=== PATIENT | male | born 1965 | race African-American/Black ===

== ENCOUNTER 2016-05-26 11:57 | Inpatient (IN) | payer OTHER ==
[2016-05-26 12:34] VITALS: BMI 31.2
--- NOTE | 2016-05-26 13:55 | HP ---
Admission ROS [facility] Chief Complaint: I NEED HELP TO GO TO REHAB FROM COCAINE Allergies/Adverse Reactions: Allergies Allergy/AdvReac Type Severity Reaction Status Date / Time No Known Allergies Allergy Verified 05/26/16 12:44 History of Present Illness: THIS 51 YEARS OLD MALE WITH COCAINE DEPENDENCE,LAST REHAB 02/12/16 TO 03/03/16 BIPOLAR DISORDER LONGEST SOBRIETY 5 YEARS Exam Limitations: No Limitations - Ebola screening Have you traveled outside of the country in the last 21 days: No Have you been sick,other than usual withdrawal symptoms: No - Review of Systems Constitutional: No Symptoms Reported EENT: reports: No Symptoms Reported Respiratory: reports: No Symptoms reported Cardiac: reports: No Symptoms Reported GI: reports: No Symptoms Reported : reports: No Symptoms Reported Musculoskeletal: reports: No Symptoms Reported Integumentary: reports: No Symptoms Reported Neuro: reports: No Symptoms reported Endocrine: reports: No Symptoms Reported Hematology: reports: No Symptoms Reported Psychiatric: reports: other ( BIPOLAR DISORDER) Patient History - Patient Medical History Hx Anemia: No Hx Asthma: No Hx Chronic Obstructive Pulmonary Disease (COPD): No Hx Cancer: Yes (prostate ca 2012, radiation x 9wks, 52 pellets ) Hx Cardiac Disorders: No Hx Congestive Heart Failure: No Hx Hypertension: No Hx Hypercholesterolemia: No Hx Pacemaker: No HX Cerebrovascular Accident: No Hx Seizures: No (h/o blackout -last in 2011) Hx Diabetes: No Hx Gastrointestinal Disorders: No Hx Liver Disease: No Hx Genitourinary Disorders: No Hx Sexually Transmitted Disorders: No Hx Renal Disease (ESRD): No Hx Thyroid Disease: No Hx Human Immunodeficiency Virus (HIV): No Hx Hepatitis C: No Hx Depression: Yes (NO MED) Hx Suicide Attempt: No Hx Bipolar Disorder: Yes (NO MED) Hx Schizophrenia: No Other Medical History: NO SUICIDAL,NO HOMICIDAL - Patient Surgical History Hx Abdominal Surgery: Yes (rt inguinal hernia repair) - PPD History Previous Implant?: Yes Documented Results: Negative w/proof Date: 02/14/16 Results: 0 MM PPD to be Administered?: No - Smoking Cessation Smoking history: Current every day smoker Have you smoked in the past 12 months: Yes Aproximately how many cigarettes per day: 10 If you are a former smoker, when did you quit?: 0 Cigars Per Day: 0 Hx Chewing Tobacco Use: No Initiated information on smoking cessation: Yes 'Breaking Loose' booklet given: 05/26/16 - Substance & Tx. History Hx Alcohol Use: No Hx Substance Use: Yes Substance Use Type: Cocaine Hx Substance Use Treatment: Yes (02/12/16 TO 03/03/16) - Substances Abused Cocaine Route: Inhalation Frequency: 3-6 times per week Amount used: 100$ Age of first use: 24 Date of Last Use: 05/23/16 Family Disease History - Family Disease History Family History: Denies Admission Physical Exam [facility] - Vital Signs Vital Signs: Vital Signs - 24 hr 05/26/16 12:31 Temperature 96.6 F L Pulse Rate 76 Respiratory 20 Rate Blood Pressure 117/80 - Physical General Appearance: Yes: Within Normal Limits HEENTM: Yes: Within Normal Limits Respiratory: Yes: Within Normal Limits Neck: Yes: Within Normal Limits Breast: Yes: Within Normal Limits Cardiology: Yes: Within Normal Limits Abdominal: Yes: Within Normal Limits, Normal Bowel Sounds, Non Tender, Flat, Soft, Surgical Scar Genitourinary: Yes: Within Normal Limits Back: Yes: Within Normal Limits Musculoskeletal: Yes: Within Normal Limits Extremities: Yes: Within Normal Limits Neurological: Yes: Within Normal Limits, 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
[2016-05-26] MEDS ORDERED: LOPERAMIDE HCL 2 MG CAPSULE PO PRN (14:03)
[2016-05-26] MEDS ORDERED: guaiFENesin/D-METHORPHAN HB 10 ML UNIT-DOSE CUPS PO PRN (14:03)
[2016-05-26] MEDS ORDERED: MAGNESIUM HYDROX 2400MG/30ML ORAL SUSPENSION 30 ML CUP PO PRN (14:03)
[2016-05-26] MEDS ORDERED: diphenhydrAMINE HCL 50 MG CAPSULE PO PRN (14:03)
[2016-05-26] MEDS ORDERED: ACETAMINOPHEN 325 MG TABLET (FP) PO PRN (14:03)
[2016-05-26] MEDS ORDERED: MAG HYDROX/AL HYDROX/SIMETH 30 ML UNIT-DOSE CUP PO PRN (14:03)
[2016-05-26] MEDS ORDERED: MAGNESIUM CITRATE 300 ML BOTTLE PO PRN (14:03)
[2016-05-26] MEDS ORDERED: hydrOXYzine PAMOATE 50 MG CAPSULE (FP) PO PRN (14:03)
[2016-05-26] MEDS ORDERED: MENTHOL/PHENOL 1 EACH UD MM PRN (14:03)
[2016-05-26] MEDS ORDERED: P-EPHED 60MG/TRIPROLIDI 2.5MG TABLET PO PRN (14:03)
[2016-05-26] MEDS: NICOTINE 21 MG/24 HOURS TOPICAL PATCH TD SCH (20:01)
[2016-05-26 20:06] LABS: MCH 29.3 pg (25.7-33.7); MCHC 31.8 g/dl (32.0-35.9); MEAN CELL VOLUME 92.1 fl (80-96); MEAN PLT VOLUME 9.4 fl (7.5-11.1); PLATELET COUNT 340 K/MM3 (134-434); WHITE BLOOD COUNT 7.5 K/mm3 (4.0-10.0)
[2016-05-26 20:21] LABS: URINE APPEARANCE CLEAR; URINE BILIRUBIN NEGATIVE (NEGATIVE); URINE BLOOD NEGATIVE (NEGATIVE); URINE COLOR LTYELLOW; URINE GLUCOSE (UA) NEGATIVE (NEGATIVE); URINE KETONE NEGATIVE (NEGATIVE); URINE LEUK ESTERASE NEGATIVE (NEGATIVE); URINE NITRITE NEGATIVE (NEGATIVE); URINE PROTEIN NEGATIVE (NEGATIVE); URINE UROBILINOGEN NEGATIVE E.U./dl (0.2-1.0)
[2016-05-26 20:29] LABS: ALBUMIN 4.1 g/dl (3.4-5.0); CALCIUM 9.1 mg/dL (8.5-10.1)
[2016-05-26 20:33] LABS: BILIRUBIN,TOTAL 0.5 mg/dL (0.2-1.0); CREATININE 1.5 mg/dL (0.7-1.3); TOT PROT 7.5 g/dl (6.4-8.2)
[2016-05-26] MEDS: BACITRACIN 0.9 GM PACKET TP SCH (22:00)
[2016-05-26] MEDS: THIAMINE HCL 100 MG TABLET (FP) PO SCH (22:00)
[2016-05-26] MEDS: QUEtiapine FUMARATE 100 MG TABLET (FP) PO SCH (22:00)
--- NOTE | 2016-05-27 09:23 | HP ---
Psychiatrist Admission - Data Date of interview: 05/27/16 Admission source: Self-referred Identifying data: This the second [facility] admission for this 51 years single Black male, father of 6, unemployed on public assistance, homeless Medical History: Significant for history of S/P surgery for Prostate cancer and S/P right Inguinal Hernia repair. 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 He was depressed because he lost his mother to cancer. He was started on Abilify 15 mg daily. He took this medication for 9 months while he was in the program. Upon discharge, he was referred to [facility] for outpatient treatment. There, he saw a psychiatrist who in addition to Abilify precribed him Seroquel 100 mg po HS. He completed [facility] in December 2015.Reports that his only psychiatric admission was to [facility] on 02/09/16 because he was feeling depressed and suicidal while under the influence of cocaine and alcohol. He was kept on the psychiatric grant for 3 days without being given psychotropic medication. After discharged, he was referred to [facility] for his first rehab admision to this facility. During that admission he did not want to be on any psychotropic medication. Upon discharge from rehab in March 03, 2016, he claims that he was referred back to [facility] when the staff psychiatrist put him back on Abilify 15 mg po daily and Seroquel 100 mg po HS. He requests that he be continued on these medication during his current stay in this facility. Denies history of suicidal attempt Physical/Sexual Abuse/Trauma History: Denies history of physical, sexual abuse as well as DV relationship Additional Comment: History of multiple previous arrests including 2 felony convictions. Denies being on parole/ probation Vital Signs: Vital Signs - 24 hr 05/26/16 05/27/16 05/27/16 12:31 00:30 03:30 Temperature 96.6 F L Pulse Rate 76 Respiratory 20 18 18 Rate Blood Pressure 117/80 05/27/16 06:42 Temperature 98.6 F Pulse Rate 74 Respiratory 18 Rate Blood Pressure 104/74 Allergies/Adverse Reactions: Allergies Allergy/AdvReac Type Severity Reaction Status Date / Time No Known Allergies Allergy Verified 12/21/16 12:44 Date of last physical exam: 05/26/16 Concur with the findings of this exam: Yes - Substance Abuse/Tx History Hx Alcohol Use: No Hx Substance Use: Yes Substance Use Type: Cocaine (Started using cocaine at age 24, consumes $100 worth daily. Last used on 05/23/16) Hx Substance Use Treatment: Yes (one previous recent inpt rehab @ [facility] from -03/03/16) - Admission Criteria Poor recovery environment: Yes Comorbidities: Yes Lacks judgement: Yes Mental Status Exam - Mental Status Exam Alert and Oriented to: Time, Place, Person Cognitive Function: Fair Patient Appearance: Well Groomed Mood: Hopeful, Euthymic Affect: Appropriate Patient Behavior: Fatigued, Cooperative Speech Pattern: Clear Voice Loudness: Normal Thought Process: Intact Thought Disorder: Not Present Hallucinations: Denies Suicidal Ideation: Denies Homicidal Ideation: Denies Insight/Judgement: Fair Sleep: Poorly Appetite: Good Muscle strength/Tone: Normal Gait/Station: Normal Psychiatric Findings - Problem List ([place] 1, 2,3) (1) Cocaine dependence Current Visit: No Status: Acute (2) Nicotine dependence Current Visit: No Status: Acute (3) Mood disorder Current Visit: No Status: Acute (4) Bipolar disorder Current Visit: Yes Status: Ruled-out (5) H/O prostate cancer Current Visit: No Status: Acute - Initial Treatment Plan Initial Treatment Plan: 1) Continue Abilify 15 mg po daily and Seroquel 100 mg po HS. 2) Monitor progress
[2016-05-27] MEDS: NICOTINE 21 MG/24 HOURS TOPICAL PATCH TD SCH (10:02)
[2016-05-27] MEDS: ARIPiprazole 15 MG TABLET PO SCH (10:02)
[2016-05-27] MEDS: BACITRACIN 0.9 GM PACKET TP SCH ×2 (10:02→21:16)
[2016-05-27] MEDS: PRENATAL VITAMINS W/ FOLIC ACID TABLET (FP) PO SCH (10:02)
[2016-05-27] MEDS: QUEtiapine FUMARATE 100 MG TABLET (FP) PO SCH (21:16)
[2016-05-27] MEDS: THIAMINE HCL 100 MG TABLET (FP) PO SCH (21:16)
[2016-05-27] MEDS: MICONAZOLE NITRATE 14 GM/TUBE TUBE TP SCH (22:08)
[2016-05-28] MEDS: ARIPiprazole 15 MG TABLET PO SCH (09:54)
[2016-05-28] MEDS: PRENATAL VITAMINS W/ FOLIC ACID TABLET (FP) PO SCH (09:54)
[2016-05-28] MEDS: BACITRACIN 0.9 GM PACKET TP SCH ×2 (09:54→21:36)
[2016-05-28] MEDS: MICONAZOLE NITRATE 14 GM/TUBE TUBE TP SCH ×2 (09:54→21:36)
[2016-05-28] MEDS: NICOTINE 21 MG/24 HOURS TOPICAL PATCH TD SCH (09:55)
[2016-05-28] MEDS: QUEtiapine FUMARATE 100 MG TABLET (FP) PO SCH (21:37)
[2016-05-28] MEDS: THIAMINE HCL 100 MG TABLET (FP) PO SCH (21:37)
[2016-05-29] MEDS: BACITRACIN 0.9 GM PACKET TP SCH ×2 (10:37→21:34)
[2016-05-29] MEDS: ARIPiprazole 15 MG TABLET PO SCH (10:37)
[2016-05-29] MEDS: PRENATAL VITAMINS W/ FOLIC ACID TABLET (FP) PO SCH (10:39)
[2016-05-29] MEDS: NICOTINE 21 MG/24 HOURS TOPICAL PATCH TD SCH (10:39)
[2016-05-29] MEDS: MICONAZOLE NITRATE 14 GM/TUBE TUBE TP SCH ×2 (10:39→21:35)
[2016-05-29] MEDS: THIAMINE HCL 100 MG TABLET (FP) PO SCH (21:35)
[2016-05-29] MEDS: QUEtiapine FUMARATE 100 MG TABLET (FP) PO SCH (21:35)
[2016-05-30] MEDS: ARIPiprazole 15 MG TABLET PO SCH (10:06)
[2016-05-30] MEDS: BACITRACIN 0.9 GM PACKET TP SCH ×2 (10:06→22:07)
[2016-05-30] MEDS: PRENATAL VITAMINS W/ FOLIC ACID TABLET (FP) PO SCH (10:06)
[2016-05-30] MEDS: MICONAZOLE NITRATE 14 GM/TUBE TUBE TP SCH ×2 (10:08→22:07)
[2016-05-30] MEDS: NICOTINE 21 MG/24 HOURS TOPICAL PATCH TD SCH (10:08)
[2016-05-30] MEDS: QUEtiapine FUMARATE 100 MG TABLET (FP) PO SCH (22:09)
[2016-05-30] MEDS: THIAMINE HCL 100 MG TABLET (FP) PO SCH (22:10)
[2016-05-31] MEDS: PRENATAL VITAMINS W/ FOLIC ACID TABLET (FP) PO SCH (10:09)
[2016-05-31] MEDS: ARIPiprazole 15 MG TABLET PO SCH (10:09)
[2016-05-31] MEDS: BACITRACIN 0.9 GM PACKET TP SCH ×2 (10:10→21:53)
[2016-05-31] MEDS: MICONAZOLE NITRATE 14 GM/TUBE TUBE TP SCH ×2 (10:10→21:54)
[2016-05-31] MEDS: NICOTINE 21 MG/24 HOURS TOPICAL PATCH TD SCH (10:10)
[2016-05-31] MEDS: THIAMINE HCL 100 MG TABLET (FP) PO SCH (21:53)
[2016-05-31] MEDS: QUEtiapine FUMARATE 100 MG TABLET (FP) PO SCH (21:53)
[2016-06-01] MEDS: MICONAZOLE NITRATE 14 GM/TUBE TUBE TP SCH ×2 (10:15→21:12)
[2016-06-01] MEDS: NICOTINE 21 MG/24 HOURS TOPICAL PATCH TD SCH (10:15)
[2016-06-01] MEDS: PRENATAL VITAMINS W/ FOLIC ACID TABLET (FP) PO SCH (10:15)
[2016-06-01] MEDS: ARIPiprazole 15 MG TABLET PO SCH (10:15)
[2016-06-01] MEDS: BACITRACIN 0.9 GM PACKET TP SCH ×2 (10:15→21:12)
[2016-06-01] MEDS: THIAMINE HCL 100 MG TABLET (FP) PO SCH (21:12)
[2016-06-01] MEDS: QUEtiapine FUMARATE 100 MG TABLET (FP) PO SCH (21:12)
[2016-06-02] MEDS: ARIPiprazole 15 MG TABLET PO SCH (09:50)
[2016-06-02] MEDS: PRENATAL VITAMINS W/ FOLIC ACID TABLET (FP) PO SCH (09:50)
[2016-06-02] MEDS: MICONAZOLE NITRATE 14 GM/TUBE TUBE TP SCH ×2 (09:50→21:22)
[2016-06-02] MEDS: BACITRACIN 0.9 GM PACKET TP SCH ×2 (09:51→21:22)
[2016-06-02] MEDS: NICOTINE 21 MG/24 HOURS TOPICAL PATCH TD SCH (10:18)
[2016-06-02] MEDS: COLLOIDAL OATMEAL 1 BAR EACH TP PRN (17:42)
[2016-06-02] MEDS: THIAMINE HCL 100 MG TABLET (FP) PO SCH (21:22)
[2016-06-02] MEDS: QUEtiapine FUMARATE 100 MG TABLET (FP) PO SCH (21:22)
[2016-06-03] MEDS: MICONAZOLE NITRATE 14 GM/TUBE TUBE TP SCH ×2 (09:51→21:44)
[2016-06-03] MEDS: PRENATAL VITAMINS W/ FOLIC ACID TABLET (FP) PO SCH (09:51)
[2016-06-03] MEDS: ARIPiprazole 15 MG TABLET PO SCH (09:51)
[2016-06-03] MEDS: NICOTINE 21 MG/24 HOURS TOPICAL PATCH TD SCH (09:51)
[2016-06-03] MEDS: BACITRACIN 0.9 GM PACKET TP SCH ×2 (09:51→21:21)
[2016-06-03] MEDS: THIAMINE HCL 100 MG TABLET (FP) PO SCH (21:21)
[2016-06-03] MEDS: QUEtiapine FUMARATE 100 MG TABLET (FP) PO SCH (21:21)
[2016-06-04] MEDS: ARIPiprazole 15 MG TABLET PO SCH (09:57)
[2016-06-04] MEDS: PRENATAL VITAMINS W/ FOLIC ACID TABLET (FP) PO SCH (09:57)
[2016-06-04] MEDS: BACITRACIN 0.9 GM PACKET TP SCH ×2 (09:57→21:10)
[2016-06-04] MEDS: NICOTINE 21 MG/24 HOURS TOPICAL PATCH TD SCH (09:58)
[2016-06-04] MEDS: MICONAZOLE NITRATE 14 GM/TUBE TUBE TP SCH ×2 (09:58→21:11)
[2016-06-04] MEDS: QUEtiapine FUMARATE 100 MG TABLET (FP) PO SCH (21:10)
[2016-06-04] MEDS: THIAMINE HCL 100 MG TABLET (FP) PO SCH (21:10)
[2016-06-05] MEDS: NICOTINE 21 MG/24 HOURS TOPICAL PATCH TD SCH (09:58)
[2016-06-05] MEDS: ARIPiprazole 15 MG TABLET PO SCH (09:59)
[2016-06-05] MEDS: PRENATAL VITAMINS W/ FOLIC ACID TABLET (FP) PO SCH (09:59)
[2016-06-05] MEDS: BACITRACIN 0.9 GM PACKET TP SCH ×2 (09:59→21:15)
[2016-06-05] MEDS: MICONAZOLE NITRATE 14 GM/TUBE TUBE TP SCH ×2 (09:59→21:16)
[2016-06-05] MEDS: THIAMINE HCL 100 MG TABLET (FP) PO SCH (21:15)
[2016-06-05] MEDS: QUEtiapine FUMARATE 100 MG TABLET (FP) PO SCH (21:16)
[2016-06-06] MEDS: MICONAZOLE NITRATE 14 GM/TUBE TUBE TP SCH ×2 (10:02→21:20)
[2016-06-06] MEDS: PRENATAL VITAMINS W/ FOLIC ACID TABLET (FP) PO SCH (10:02)
[2016-06-06] MEDS: BACITRACIN 0.9 GM PACKET TP SCH ×2 (10:02→21:20)
[2016-06-06] MEDS: NICOTINE 21 MG/24 HOURS TOPICAL PATCH TD SCH (10:02)
[2016-06-06] MEDS: ARIPiprazole 15 MG TABLET PO SCH (10:02)
[2016-06-06] MEDS: IBUPROFEN 400 MG TABLET (FP) PO PRN (11:10)
[2016-06-06] MEDS: THIAMINE HCL 100 MG TABLET (FP) PO SCH (21:20)
[2016-06-06] MEDS: QUEtiapine FUMARATE 100 MG TABLET (FP) PO SCH (21:20)
[2016-06-07] MEDS: MICONAZOLE NITRATE 14 GM/TUBE TUBE TP SCH ×2 (09:52→21:13)
[2016-06-07] MEDS: ARIPiprazole 15 MG TABLET PO SCH (09:52)
[2016-06-07] MEDS: BACITRACIN 0.9 GM PACKET TP SCH ×2 (09:52→21:13)
[2016-06-07] MEDS: PRENATAL VITAMINS W/ FOLIC ACID TABLET (FP) PO SCH (09:53)
[2016-06-07] MEDS: NICOTINE 21 MG/24 HOURS TOPICAL PATCH TD SCH (09:53)
[2016-06-07] MEDS: THIAMINE HCL 100 MG TABLET (FP) PO SCH (21:13)
[2016-06-07] MEDS: QUEtiapine FUMARATE 100 MG TABLET (FP) PO SCH (21:13)
[2016-06-08] MEDS: NICOTINE 21 MG/24 HOURS TOPICAL PATCH TD SCH (09:47)
[2016-06-08] MEDS: PRENATAL VITAMINS W/ FOLIC ACID TABLET (FP) PO SCH (09:47)
[2016-06-08] MEDS: MICONAZOLE NITRATE 14 GM/TUBE TUBE TP SCH ×2 (09:47→21:03)
[2016-06-08] MEDS: BACITRACIN 0.9 GM PACKET TP SCH ×2 (09:47→21:03)
[2016-06-08] MEDS: ARIPiprazole 15 MG TABLET PO SCH (09:47)
[2016-06-08] MEDS: COLLOIDAL OATMEAL 1 BAR EACH TP PRN (17:57)
[2016-06-08] MEDS: QUEtiapine FUMARATE 100 MG TABLET (FP) PO SCH (21:03)
[2016-06-08] MEDS: THIAMINE HCL 100 MG TABLET (FP) PO SCH (21:03)
[2016-06-09] MEDS: IBUPROFEN 400 MG TABLET (FP) PO PRN (06:31)
[2016-06-09] MEDS: MICONAZOLE NITRATE 14 GM/TUBE TUBE TP SCH ×2 (09:40→21:03)
[2016-06-09] MEDS: BACITRACIN 0.9 GM PACKET TP SCH ×2 (09:40→21:03)
[2016-06-09] MEDS: PRENATAL VITAMINS W/ FOLIC ACID TABLET (FP) PO SCH (09:40)
[2016-06-09] MEDS: ARIPiprazole 15 MG TABLET PO SCH (09:40)
[2016-06-09] MEDS: NICOTINE 21 MG/24 HOURS TOPICAL PATCH TD SCH (09:41)
[2016-06-09] MEDS: QUEtiapine FUMARATE 100 MG TABLET (FP) PO SCH (21:03)
[2016-06-09] MEDS: THIAMINE HCL 100 MG TABLET (FP) PO SCH (21:03)
[2016-06-10] MEDS: IBUPROFEN 400 MG TABLET (FP) PO PRN (06:32)
[2016-06-10 07:14] VITALS: BP 120/79; PULSE 82; TEMP 97.4
--- NOTE | 2016-06-10 09:15 | PN ---
Psychiatric Progress Note Vital Signs: Vital Signs Period Temp Pulse Resp BP Sys/Montes Pulse Ox Last 24 Hr 97.4 F 82 16-18 120/79 Date of Session: 06/10/16 Chief Complaint:: Psychiatrist Discharge Note HPI: Patient addressing Cocaine Dependence comorbid with Nicotine Dependence and Mood Disorder ROS: Prostate cancer Current Medications: Active Medications Generic Name Dose Route Start Last Admin Trade Name Freq PRN Reason Stop Dose Admin Acetaminophen 650 mg 05/26/16 14:03 Tylenol - PO Q4H PRN PAIN Al Hydroxide/Mg Hydroxide 30 ml 05/26/16 14:03 Mylanta Oral Suspension - PO Q6H PRN DYSPEPSIA Aripiprazole 15 mg 05/27/16 10:00 06/09/16 09:40 Abilify PO 15 mg DAILY PORTER Administration Bacitracin 0.9 gm 05/26/16 22:00 06/09/16 21:03 Bacitracin - TP 0.9 gm BID PORTER Administration Colloidal Oatmeal 1 applic 06/02/16 14:47 06/08/16 17:57 Aveeno Soap - TP 1 applic DAILY PRN Administration HYGEINE Diphenhydramine HCl 50 mg 05/26/16 14:03 Benadryl - PO HSMR1 PRN INSOMNIA Eucalyptus/Menthol/Phenol/Sorbitol 1 each 05/26/16 14:03 Cepastat Lozenge - MM Q4H PRN SORE THROAT Guaifenesin 10 ml 05/26/16 14:03 Robitussin Dm - PO Q6H PRN COUGH Hydroxyzine Pamoate 50 mg 05/26/16 14:03 Vistaril - PO Q4H PRN AGITATION Ibuprofen 400 mg 05/26/16 14:03 06/10/16 06:32 Motrin - PO 400 mg Q6H PRN Administration SEVERE PAIN Loperamide HCl 4 mg 05/26/16 14:03 Imodium - PO Q6H PRN DIARRHEA Magnesium Citrate 300 ml 05/26/16 14:03 Citroma - PO Q48H PRN CONSTIPATION Magnesium Hydroxide 30 ml 05/26/16 14:03 Milk Of Magnesia - PO DAILY PRN CONSTIPATION Miconazole Nitrate 1 applic 05/27/16 22:00 06/09/16 21:03 Monistat Topical Cream - TP Not Given BID PORTER Nicotine 21 mg 05/26/16 14:15 06/09/16 09:41 Nicoderm Patch - TD Not Given DAILY PORTER Multivit/Folic Acid/Iron 1 tab 05/27/16 10:00 06/09/16 09:40 Vitamins (Sjr) - PO 1 tab DAILY PORTER Administration Pseudoephedrine/Triprolidine 1 combo 05/26/16 14:03 Actifed - PO TID PRN NASAL CONGESTION Quetiapine Fumarate 100 mg 05/26/16 22:00 06/09/16 21:03 Seroquel - PO 100 mg HS PORTER Administration Thiamine HCl 100 mg 05/26/16 22:00 06/09/16 21:03 Vitamin B1 - PO 100 mg HS PORTER Administration Current Side Effect: No Lab tests ordered: No Lab tests reviewed: Yes Provider note:: Patient has completed this program today. He has met his treatment goals and will continue to address his issues in outpatient treatment at [facility]. He verbalized understanding of the negative consequences of his addiction and from his participation in this program, he has learned to recognize that he is in a toxic relationship and he has to change his attitute and behavior. He responded well to Abilify 15 mg po daily and Seroquel 100 mg po HS. Scripts for these medications are electronically transferred to [facility] at [address] [place] [address]. He is stable for discharge today Total face to face time:: 35 Mental Status Exam - Mental Status Exam Alert and Oriented to: Time, Place, Person Cognitive Function: Fair Patient Appearance: Well Groomed Mood: Hopeful, Euthymic Affect: Appropriate Patient Behavior: Cooperative Speech Pattern: Clear Voice Loudness: Normal Thought Process: Intact Thought Disorder: Not Present Hallucinations: Denies Suicidal Ideation: Denies Homicidal Ideation: Denies Insight/Judgement: Fair Sleep: Fair Appetite: Good Muscle strength/Tone: Normal Gait/Station: Normal Psychiatric Treatment Plan - Problem List (1) Cocaine dependence Current Visit: No (2) Nicotine dependence Current Visit: No (3) Mood disorder Current Visit: No (4) Bipolar disorder Current Visit: Yes (5) H/O prostate cancer Current Visit: No Initial treatment plan: Patient is discharged today and referred to [facility] for outpatient treatment
[2016-06-10] MEDS: PRENATAL VITAMINS W/ FOLIC ACID TABLET (FP) PO SCH (09:30)
[2016-06-10] MEDS: ARIPiprazole 15 MG TABLET PO SCH (09:30)
[2016-06-10] MEDS: BACITRACIN 0.9 GM PACKET TP SCH (09:31)
[2016-06-10] MEDS: MICONAZOLE NITRATE 14 GM/TUBE TUBE TP SCH (09:31)
[2016-06-10] MEDS: NICOTINE 21 MG/24 HOURS TOPICAL PATCH TD SCH (10:15)
== END 2016-06-10 10:00 | disposition home or self-care (01) | DRG 772 ==
LOC: YASAS 11:57 → Y3W 14:01
PROVIDERS: ADMIT Psychiatry & Neurology Psychiatry; ATTEND Psychiatry & Neurology Psychiatry
PROC: HZ42ZZZ Group Counseling for Substance Abuse Treatment, Cognitive-Behavioral (ICD-10-PCS; principal; 2016-05-26)
DX: F14.20 Cocaine dependence, uncomplicated (principal); F17.210 Nicotine dependence, cigarettes, uncomplicated; F39 Unspecified mood [affective] disorder; F31.9 Bipolar disorder, unspecified; Z85.46 Personal history of malignant neoplasm of prostate; Z86.69 Personal history of other diseases of the nervous system and sense organs
CPT/HCPCS: 36415; 80053; 81003; 85027; 86593; 93005; 93010